=== PATIENT | male | born 1950 | race Caucasian/White ===

== ENCOUNTER → 2018-04-03 | Outpatient (CLI) | payer OTHER, MEDICARE, BC ==
[~2018-04-03] MED LIST: ATORVASTATIN; BENICAR HCT 12.1 TA1 PO; BENICAR40 MG PO; CENTRUM SILVER1 TA1 PO; FISH OIL1 IU PO; LIPITOR20 MG PO; VITAMIN C500 MG PO
== END ==
LOC: COL.RAD 10:08
DX: Z13.6 Encounter for screening for cardiovascular disorders (principal); I25.10 Atherosclerotic heart disease of native coronary artery without angina pectoris; R91.1 Solitary pulmonary nodule
CPT/HCPCS: Q9967

== ENCOUNTER 2023-10-21 12:56 | Day surgery (SDC) | payer MEDICARE, BC ==
[2023-10-21] VITALS (9 sets, daily range): BP systolic 142–164; BP diastolic 63–79; PULSE 65–78; TEMP 97.8–98.4
[~2023-10-21] VITALS: Ht 180.3 cm; Wt 88.2 kg
[~2023-10-21 12:56] MED LIST changes: +ASPIRIN 81M81 MG/TA2 PO; +ASPIRIN E.C. 8181 MG PO; +BENADRYL25 M2 PO; +CEFTIN500 MG PO; +CEPHALEXIN500 M1 PO; +DICLOFENAC SOD2.5 ML TOP; +DIOVAN320 MG PO; +FLOMAX 0.40.4 MG/CAP PO; +HCTZ 25MG TAB25 MG PO; +LIPITOR 80MG80 MG PO; +MOBIC15 MG PO; +OPTIVE 0.5%-0.915 ML OP; +PERCOCET 325 MG1 TA2 PO; +PROSCAR 5MG5 MG PO; +TYLENOL 325MG325 MG PO
[2023-10-21] MEDS ORDERED: DIOVAN320 MG PO (14:05)
[2023-10-21] MEDS ORDERED: CARBIDOPA PO (14:09)
[2023-10-21] MEDS ORDERED: SINEMET 25/101 UDTAB PO (14:45)
[2023-10-21] MEDS ORDERED: PYRIDIUM 100MG100 MG PO (16:09)
--- NOTE | 2023-10-21 17:59 | NUR ---
PT ARRIVED TO [facility] FROM PACU AT 1720. NO COMPLAINTS FO PAIN AT THIS TIME. CBI IS RUNNING SLOW TO MODERATELY. URINE IS LIGHT PINK AND CLEAR. PT HAS BEEN TOLERATIGN CLEAR FLUIDS. DIET WAS ADVANCED TO GENERAL. VITALS ARE STABLE. PT RESTING IN BED. CALL LIGHT WITHIN REACH.
--- NOTE | 2023-10-21 19:00 | NUR ---
resting in bed, bedside shift report received from JORGE Chatterjee, CBI infusing at a mod rate
--- NOTE | 2023-10-21 20:00 | NUR ---
was up to bathroom and had loose bowel movement, has some bleeding around meatus, assisted back to bed and care provided, CBI infusing at a mod rate and urine is a fruit punch red but no clots seen
[2023-10-22] VITALS (9 sets, daily range): BP systolic 154–182; BP diastolic 69–78; PULSE 80–91; TEMP 97.5–98.4
--- NOTE | 2023-10-22 01:02 | NUR ---
urine is red in tubing and CBI infusing mod to fast rate, has some stringy clots in tubing, he is feeling some pressure in bladder, irrigated and only a few clots removed but patient immedialtey felt less pressure, CBI rate increased to a faster rate
--- NOTE | 2023-10-22 03:01 | NUR ---
CBI continues at a fast rate, urine remains clear dark red in tubing
--- NOTE | 2023-10-22 03:30 | NUR ---
called nurse to room and feels pressure, irrigated and small clots removed, CBI continues at fast rate
--- NOTE | 2023-10-22 05:20 | NUR ---
up to bathroom and while up feeling pressure, back to bed, and irrigated a small clot and then patient fels relief, CBI continues to run at fast rate
--- NOTE | 2023-10-22 05:51 | NUR ---
JORGE Levy in room and stated the benz had clotted off again and she irrigated it, it is now flowing light pink in color wiht CBI infusing fast
--- NOTE | 2023-10-22 06:07 | NUR ---
urine is very light pink and clar at this time, CBI infusing at a fast rate
--- NOTE | 2023-10-22 06:45 | NUR ---
THIS NURSE WAS RECIEVING BEDSIDE REPORT WHEN DR EDDY CAME IN TO ASSESS PATIENT. PROVIDER PROVIDED EDUCATION ON REMOVING THE IZQUIERDO AND URINATING NORMALLY IN ORDER TO GO HOME.
--- NOTE | 2023-10-22 06:55 | NUR ---
bedside shift report given to ABIGAIL patel, Dr Cevallos in to see patient
--- NOTE | 2023-10-22 07:00 | NUR ---
REMOVED IZQUIERDO PER PHYSICIAN ORDERS. PT EDUCATED ON 6 CUP ROUTINE.
--- NOTE | 2023-10-22 09:58 | NUR ---
THIS NURSE GAVE PT DISCHARGE INSTRUCTIONS AND EDUCATION. PROVIDED EDUCATION ON IMPORTANCE OF 6 CUP ROUTINE BEFORE DISCHARGE.
--- NOTE | 2023-10-22 10:40 | NUR ---
graphic pre press trades worker met with pt to complete discharge planning. Pt lives in [place] with his , Casandra [phone]. He sees Dr. Pretty and obtains medications from [facility] with no difficulties. He uses a cane and CPAP at home. Pt is independent with all ADLS. He did not have a DPOA-HC and informed SW to ask his . Pt plans to go back home today. SW called Casandra and she informed SW they used to have a DPOA, but is unsure where it might be. She approved SW to complete one with Pt. Pt was agreeable and completed this listing Casandra and his dtr, Netta. JORGE Mora was the witness. Pt was provided original and copies. Copy in chart. Discharge Plan: Home
--- NOTE | 2023-10-22 10:51 | NUR ---
PROVIDER NOTIIFED THAT PT HAS NOT VOIDED ON OWN SINCE [address] WAS REMOVED. VERBAL ORDER TO INSERT 20 [address] COUDE IF PATIENT FEELS FULLNESS IN BLADDER. WILL CONT TO ENCOURAGE PT TO URINATE AND INCREASE FLUIDS.
--- NOTE | 2023-10-22 11:05 | NUR ---
Initial visit; Patient thanked Motor Mechanic for looking in on him and offering God's blessings. Patient states he is doing better. Motor Mechanic detects that he is unsteady on his feet but able to walk, so wished him God's blessings and will keep him in her prayers.
--- NOTE | 2023-10-22 12:33 | NUR ---
INSERTION OF 20 [address] COUDE IZQUIERDO CATHETER. URINE IS DARK RED AND IS NOT CLEAR. PROVIDER NOTIFIED, AND ENCOURAGED TO IRRIGATE, MONITOR FOR CLOTS, AND ENCOURAGE FLUIDS. IF URINE CLEARS UP PT WILL BE ABLE TO GO HOME THIS AFTERNOON.
--- NOTE | 2023-10-22 14:06 | NUR ---
PATIENT BACK TO SURGICAL UNIT FROM PACU. POST-OP VS INITIATED. VSS. PATIENT IS ASLEEP BUT EASY TO AROUSE.
--- NOTE | 2023-10-22 16:05 | NUR ---
PATIENT ESCORTED BY NURSE VIA WHEELCHAIR OFF THE UNIT. AND DAUGHTER WITH PT. ALL BELONGINGS WITH PT.
== END 2023-10-22 16:30 | disposition home or self-care (01) ==
LOC: SDCO 12:56 → SURG 17:16 → SDCO 10-22 16:30
DX: N40.1 Benign prostatic hyperplasia with lower urinary tract symptoms (principal); R39.12 Poor urinary stream; R39.14 Feeling of incomplete bladder emptying; R35.1 Nocturia; G47.33 Obstructive sleep apnea (adult) (pediatric); R39.15 Urgency of urination
CPT/HCPCS: OP; J0665; J2250; J2704; J3010; J7120

== ENCOUNTER → 2024-02-23 | Outpatient (CLI) | payer MEDICARE, BC, OTHER ==
[~2024-02-23] MED LIST changes: +CARBIDOPA PO; +PYRIDIUM 100MG100 MG PO; +SINEMET 25/101 UDTAB PO
== END ==
LOC: COL.RAD 11:16
DX: R13.14 Dysphagia, pharyngoesophageal phase (principal)

== ENCOUNTER 2024-07-05 10:25 | Emergency (ER) | payer OTHER ==
[~2024-07-05] VITALS: Ht 180.3 cm; Wt 79.5 kg
[2024-07-05 10:30] VITALS: TEMP 98
[2024-07-05 13:08] VITALS: BP 128/78; PULSE 60
== END 2024-07-05 13:08 | disposition home or self-care (01) ==
LOC: COL.ER 10:25
DX: L91.9 Hypertrophic disorder of the skin, unspecified (principal)